=== PATIENT | male | born 1995 | race Caucasian/White ===

== ENCOUNTER 2020-10-24 11:52 | Emergency (ER) | payer SELFPAY ==
[~2020-10-24] VITALS: Ht 175.3 cm; Wt 90.9 kg
[2020-10-24 11:53] VITALS: BP 128/84
== END 2020-10-24 12:00 | disposition left against medical advice (07) ==
LOC: EMS 11:52
DX: M54.2 Cervicalgia (principal); Z53.21 Procedure and treatment not carried out due to patient leaving prior to being seen by health care provider